=== PATIENT | female | born 1965 | race Caucasian/White ===

== ENCOUNTER → 2022-11-04 | Outpatient (CLI) | payer BC ==
[~2022-11-04] MED LIST: CALCIUM; GLUC500C2; HYDR-229 PO; HYDR1TAB75 PO; IRON; PRM25T PO; VNL75T
== END | disposition home or self-care (01) ==
LOC: PREOP 06:17
PROVIDERS: ATTEND Surgery
DX: Z01.818 Encounter for other preprocedural examination (principal)

== ENCOUNTER 2022-11-17 09:14 | Day surgery (SDC) | payer BC ==
[~2022-11-17] VITALS: Ht 172.7 cm; Wt 78.5 kg
[~2022-11-17 09:14] MED LIST changes: +ASCO100024 PO; +CRAN450T9 PO; +FERR-84 PO; +GLUC100016 PO; +MONT-40 PO; +MULT-593 PO; +SIMV10TA26 PO; +VNL75T PO
[2022-11-17] MEDS ORDERED: LACTATED RINGERS 1,000 ML IV STA (09:20)
[2022-11-17 09:38] VITALS: BP 116/61
[2022-11-17] MEDS ORDERED: PROPOFOL INJECTION 50 ML IV ONE (11:01)
[2022-11-17] MEDS ORDERED: MIDAZOLAM 2 MG/2 ML (VERSED) VIAL ONE (11:02)
[2022-11-17 11:45] VITALS: BP 90/58
--- NOTE | 2022-11-17 11:48 | Progress Note-Post Operative ---
Post-Operative Progess Note Surgeon (s)/Channel Installer (s) Surgeon BALAJI DOMÍNGUEZ DO Channel Installer: na Pre-Operative Diagnosis Screening Post-Operative Diagnosis Normal Colon Procedure & Operative Findings Date of Procedure 11/17/22 Procedure Performed/Findings None Anesthesia Type Per DITCH INSPECTOR Estimated Blood Loss Estimated blood loss (mL): None Specimens/Packing Specimens Removed None BALAJI DOMÍNGUEZ DO Nov 17, 2022 11:48
--- NOTE | 2022-11-17 11:49 | Discharge Inst-Simple/Standard ---
Discharge Inst-Standard Patient Instructions/Follow Up Plan of Care/Instructions/FU: 10 years alexis unless family hx or personal history of polyps which would be 5 years. Activity as Tolerated: Yes Discharge Diet: Regular Diet BALAJI DOMÍNGUEZ DO Nov 17, 2022 11:49
[2022-11-17 11:50] VITALS: BP 101/61
[2022-11-17 11:56] VITALS: BP 101/61
[2022-11-17 12:15] VITALS: BP 101/61
--- NOTE | 2022-11-17 14:04 | Anesthesia-General Post-Op ---
MAC Patient Condition Mental Status/LOC: Same as Preop Cardiovascular: Satisfactory Nausea/Vomiting: Absent Respiratory: Satisfactory Pain: Controlled Complications: Absent Post Op Complications Complications None Follow Up Care/Instructions Patient Instructions None needed. Anesthesiology Discharge Order Discharge Order Patient is doing well, no complaints, stable vital signs, no apparent adverse anesthesia problems. No complications reported per nursing. ELLI SMALL CRNA Nov 17, 2022 14:03
--- NOTE | 2022-11-17 17:45 | OPERATIVE REPORT ---
DATE OF SERVICE: 11/17/2022 PREOPERATIVE DIAGNOSIS: Screening colonoscopy. POSTOPERATIVE DIAGNOSIS: Normal colon. PROCEDURE: Colonoscopy. SURGEON: Balaji Weir DO. ANESTHESIA: Per OIL FIELD OPERATOR. ESTIMATED BLOOD LOSS: None. COMPLICATIONS: None. INDICATIONS: The patient is a 57-year-old female, needing screening colonoscopy. She understands risks and benefits of procedure and wished to proceed. Consent was signed in chart. DESCRIPTION OF PROCEDURE: The patient was taken to endoscopy suite, placed in left lateral recumbent position. Timeout was performed. Digital rectal exam was performed. No palpable polyps, masses or ulcerations. Scope was inserted in the rectum and advanced all the way to the cecum with minimal difficulty. Prep was adequate. Scope was slowly retracted back. No polyps, masses or ulcerations in the cecum, ascending, transverse, descending and sigmoid colon. Once in the rectum, scope was retroflexed, noting no other pathology. Scope was returned to its normal position, slowly withdrawn until completely removed. The patient tolerated the procedure well without complications, taken to recovery room in stable condition. RECOMMENDATIONS: The patient will need repeat colonoscopy in 10 years unless family history of colon cancer, personal history of polyps, which will then be 5 years. Any issues before that, be seen at that time. Job ID: [id number] DocumentID: [id number] Dictated Date: 11/17/2022 11:51:10 Dental Ceramist Assistant Date: 11/17/2022 17:43:00 Dictated By: BALAJI WEIR DO
== END 2022-11-17 12:20 | disposition home or self-care (01) ==
LOC: ENDO 09:14
PROVIDERS: ATTEND Surgery
DX: Z12.11 Encounter for screening for malignant neoplasm of colon (principal)

== ENCOUNTER → 2023-01-06 | Outpatient (CLI) | payer BC ==
--- NOTE | 2023-01-07 09:47 | Diagnostic Imaging Report ---
Indication: Routine screening. Comparison is made with prior mammogram from 01/05/2022 and 01/06/2021. 2-D and 3-D bilateral screening mammography was performed with CAD. The current study was also evaluated with a Computer Aided Detection (CAD) system. Scattered fibroglandular densities are identified bilaterally. The parenchymal pattern is stable. No mass or malignant-appearing microcalcifications are seen. Axillae are unremarkable. IMPRESSION: BI-RADS Category 1 No mammographic features suspicious for malignancy are identified. ACR BI-RADS Category 1: Negative. Result letter will be mailed to the patient. Note: At least 10% of breast cancer is not imaged by mammography. Dictated by: Dictated on workstation # [id number]
== END ==
LOC: RAD 14:46
PROVIDERS: ATTEND Family Medicine
DX: Z12.31 Encounter for screening mammogram for malignant neoplasm of breast (principal); M85.80 Other specified disorders of bone density and structure, unspecified site
CPT/HCPCS: 77063; 77067

== ENCOUNTER → 2023-01-12 | Outpatient (CLI) | payer BC ==
--- NOTE | 2023-01-12 14:34 | Diagnostic Imaging Report ---
INDICATION: Postmenopausal state. COMPARISON: 12/09/2010. FINDINGS: AP Spine L1-L4: [BMD (g/cm2): 1.052] [T-Score: -1.2] [Z-Score: -0.5] [BMD Previous: 1.243] [BMD % Change: -15.4*] LT Hip Neck: [BMD (g/cm2): 0.692] [T-Score: -2.5] [Z-Score: -1.5] LT Hip Total: [BMD (g/cm2):0.726] [T-Score:-2.2] [Z-Score: -1.6] [BMD Previous: 0.890] [BMD % Change: -18.4*] RT Hip Neck: [BMD (g/cm2):0.740] [T-Score:-2.1] [Z-Score:-1.2] RT Hip Total: [BMD (g/cm2):0.770] [T-score:-1.9] [Z-Score:-1.3] [BMD Previous:0.928] [BMD % Change:-17.0*] *Indicates significant change from prior examination based on 95% confidence level. World Health Organization criteria for BMD interpretation classify patients as Normal (T-score at or above -1.0), Osteopenic (T-score between -1.0 and -2.5) or Osteoporotic (T-score at or below -2.5). LIMITATIONS AND MODIFICATION: Significant apex left curvature of the lumbar spine with associated scattered degenerative changes. FRACTURE RISK (FRAX SCORE): The ten year probability of (%): Major Osteoporotic Fracture: [42.3] Hip Fracture: [5.8] IMPRESSION: 1. Osteoporosis. 2. Bone mineral density has decreased by a statistically significant amount, as detailed above. 3. See below National Osteoporosis Foundation guidelines on when to potentially initiate pharmacologic therapy. Based on the National Osteoporosis Foundation Guidelines, pharmacologic treatment should be initiated in any of the following, unless clinical conditions suggest otherwise: * Any patient with prior fragility fracture of the hip or vertebrae. A spine fracture indicates 5X risk for subsequent spine fracture and 2X risk for subsequent hip fracture. * Osteoporosis (T-score <-2.5). * Postmenopausal women and men age 50 and older with low bone mass/osteopenia (T-score between -1.0 and -2.5) by DXA and 10-year major osteoporotic fracture greater than 20% or a 10-year probability of hip fracture greater than 3%. These fracture risks are supplied above in the FRAX score, if applicable. * Clinician judgement and/or patient preferences may indicate treatment for people with 10-year fracture probabilities above or below these levels. Dictated by: Dictated on workstation # [id number]
== END ==
LOC: RAD 10:00
PROVIDERS: ATTEND Family Medicine
DX: Z12.11 Encounter for screening for malignant neoplasm of colon (principal); M81.0 Age-related osteoporosis without current pathological fracture; Z78.0 Asymptomatic menopausal state
CPT/HCPCS: 77080